=== PATIENT | female | born 1965 | race Caucasian/White ===

== ENCOUNTER 2020-11-26 16:00 | Emergency (ER) | payer OTHER ==
--- NOTE | 2020-11-26 16:08 | ERPHSYRPT ---
- History of Present Illness Time Seen by Provider: 11/26/20 16:08 Source: patient Exam Limitations: no limitations Physician History: This is a 54-year-old thin white female who has a history of GERD and chronic low back pain on gabapentin who presents with right lower back pain with shooting sharp pains down her right buttock and posterior thigh on the right side. Patient did move a dresser a day and a half ago but did not fall off a roof or get hit by car or suffer any other acute trauma to the area. She has no complaints of loss of bowel or bladder control. Method of Injury: lifting, twisted Quality: radiating, sharp Back Pain Location: paraspinous muscles (Lumbar level right side) Back Pain Radiation: buttocks (Right), upper legs (Right posterior) Severity of Pain-Max: mild (To moderate) Severity of Pain-Current: mild (To moderate) Associated Symptoms: lower back pain, muscle spasms (Right paraspinous muscle lumbar level), No urinary incontinence, No loss of bowel control, No numbness in legs/feet Previous symptoms: same symptoms as today Allergies/Adverse Reactions: codeine Allergy (Verified 11/26/20 16:35) Penicillins Allergy (Verified 11/26/20 16:35) Home Medications: Famotidine 20 mg [Pepcid 20 MG] 40 mg PO BID 11/26/20 [History] Gabapentin 100 mg [Neurontin 100 MG] 100 mg PO BID 11/26/20 [History] PANTOPRAZOLE 40 mg Tablet [Protonix 40MG Tablet] 40 mg PO BID 11/26/20 [History] Travel Risk - International Travel Have you traveled outside of the country in past 3 weeks: No - Coronavirus Screening Are you exhibiting any of the following symptoms?: No Close contact with a COVID-19 positive Pt in past 14-21 Days: No - Review of Systems Constitutional: No Symptoms Eyes: No Symptoms Ears, Nose, & Throat: No Symptoms Respiratory: No Symptoms Cardiac: No Symptoms Abdominal/Gastrointestinal: No Symptoms Genitourinary Symptoms: No Symptoms Musculoskeletal: Back Pain, No Injury Skin: No Symptoms Neurological: No Symptoms Psychological: No Symptoms Endocrine: No Symptoms Hematologic/Lymphatic: No Symptoms Immunological/Allergic: No Symptoms All Other Systems: Reviewed and Negative - Past Medical History Pertinent Past Medical History: Yes - Past Surgical History Past Surgical History: Yes - Nursing Vital Signs Nursing Vital Signs: Initial Vital Signs Temperature 97.9 F 11/26/20 16:26 Pulse Rate 114 H 11/26/20 16:26 Respiratory Rate 22 11/26/20 16:26 Blood Pressure 94/61 11/26/20 16:26 O2 Sat by Pulse Oximetry 98 11/26/20 16:26 Pain Scale Pain Intensity [Right Back] 7 Pain Intensity 7 - Physical Exam General Appearance: no apparent distress, alert, anxiety Eye Exam: PERRL/EOMI, eyes nml inspection Ears, Nose, Throat Exam: normal ENT inspection, moist mucous membranes Neck Exam: normal inspection, non-tender, supple, full range of motion Respiratory Exam: normal breath sounds, lungs clear, airway intact, No chest tenderness, No respiratory distress Cardiovascular Exam: tachycardia Gastrointestinal Exam: soft, normal bowel sounds, No tenderness Pelvic Exam: not done Rectal Exam: not done Back Exam: normal inspection, normal range of motion, muscle spasm (Right paraspinous muscle lumbar level), No CVA tenderness, No vertebral tenderness Extremity Exam: normal inspection, normal range of motion, pelvis stable Neurologic Exam: alert, oriented x 3, cooperative, 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 Follow-up with your primary care physician for further management. Prescriptions: Cyclobenzaprine HCl 10 mg [Cyclobenzaprine 10 MG] 10 mg PO TID #10 tablet Prednisone 5 mg [Deltasone 5 mg] 5 mg PO TID #12 tablet
[2020-11-26 17:56] VITALS: BP 92/67; PULSE 97; O2SAT 99
== END 2020-11-26 17:55 | disposition home or self-care (01) ==
LOC: ED 16:00
DX: M54.41 Lumbago with sciatica, right side (principal)
CPT/HCPCS: 99283

== ENCOUNTER 2021-02-02 01:52 | Emergency (ER) | payer OTHER ==
--- NOTE | 2021-02-02 02:43 | ERPHSYRPT ---
- History of Present Illness Time Seen by Provider: 02/02/21 02:38 Source: patient Exam Limitations: no limitations Patient Subjective Stated Complaint: pt states "I tripped over the dog create and hit my head on the back of the recliner." Triage Nursing Assessment: pt ambulated into the er; pt is holding head; pt is axo x4; c/o fall with laceration to forehead; pt states 9/10 pain to head; pt c/o headache and dizziness; pt has laceration to forehead; laceration measures 1.75 cm x 0.5 cm; minimal bleeding present; left pupil 4 mm and nonreactive; pt states that is normal for left eye pupil after surgery to left eye; rt pupil 3 mm and PERRL; strong BUE unix developer; strong BLE pushes; pt denies neck pain; hypertensive Physician History: pt states "I tripped over the dog create and hit my head on the back of the recliner." c/o fall with laceration to forehead; pt states 9/10 pain to head; pt c/o headache and dizziness; pt has laceration to forehead; laceration measures 1.75 cm x 0.5 cm; minimal bleeding present; Timing/Duration: today Associated Symptoms: denies symptoms Allergies/Adverse Reactions: codeine Allergy (Verified 02/02/21 02:10) Penicillins Allergy (Verified 02/02/21 02:10) Home Medications: Famotidine 20 mg [Pepcid 20 MG] 40 mg PO BID 11/26/20 [History] Gabapentin 100 mg [Neurontin 100 MG] 100 mg PO BID 11/26/20 [History] PANTOPRAZOLE 40 mg Tablet [Protonix 40MG Tablet] 40 mg PO BID 11/26/20 [History] Hx Tetanus, Diphtheria Vaccination/Date Given: No Hx Influenza Vaccination/Date Given: No Hx Pneumococcal Vaccination/Date Given: No Travel Risk - International Travel Have you traveled outside of the country in past 3 weeks: No (N) If Yes, where;: N - Coronavirus Screening Are you exhibiting any of the following symptoms?: No Close contact with a COVID-19 positive Pt in past 14-21 Days: No - Vaccine Status Have you recieved a Covid-19 vaccination: No - Review of Systems Constitutional: No Symptoms Eyes: No Symptoms Ears, Nose, & Throat: No Symptoms Respiratory: No Symptoms Cardiac: No Symptoms Abdominal/Gastrointestinal: No Symptoms Genitourinary Symptoms: No Symptoms Musculoskeletal: No Symptoms Skin: No Symptoms Neurological: No Symptoms Psychological: No Symptoms - Past Medical History Pertinent Past Medical History: Yes Psycho-Social History: Anxiety, Depression Other Medical History: being seen by Markel for stomach issues, unknown at this time - Past Surgical History Past Surgical History: Yes Gastrointestinal: Appendectomy Female Surgical History: Section - Social History Smoking Status: Light tobacco smoker How long have you smoked: years Exposure to second hand smoke: No Drug Use: marijuana Patient Lives Alone: No - Female History Hx Now: No - Nursing Vital Signs Nursing Vital Signs: Initial Vital Signs Temperature 98.2 F 02/02/21 01:53 Pulse Rate 89 02/02/21 01:53 Respiratory Rate 16 02/02/21 01:53 Blood Pressure 151/96 02/02/21 01:53 O2 Sat by Pulse Oximetry 99 02/02/21 01:53 Pain Scale Pain Intensity 9 - Physical Exam General Appearance: no apparent distress Eye Exam: PERRL/EOMI Ears, Nose, Throat Exam: normal ENT inspection Neck Exam: normal inspection Respiratory Exam: normal breath sounds Cardiovascular Exam: regular rate/rhythm Back Exam: normal inspection Neurologic Exam: alert, oriented x 3 Skin Exam: normal color, laceration (curvilinear superficial laceration on bridge of nose) SpO2 Interpretation: normal SpO2: 99 O2 Delivery: Room Air Procedures - Laceration/Wound Repair Frontal Time of Procedure: 02:41 Wound Location: forehead Wound Length (cm): 3 Wound's Depth, Shape: superficial Wound Explored: clean Irrigated: Yes Hibiclens Prep: Yes Wound Repaired With: Pete (3 pete) - Course Nursing assessment & vital signs reviewed: Yes - Progress Progress: improved Counseled pt/family regarding: diagnosis, need for follow-up - Departure Departure Disposition: Home Clinical Impression: Laceration of forehead Qualifiers: Encounter type: initial encounter Qualified Code(s): S01.81XA - Laceration without foreign body of other part of head, initial encounter Condition: Stable Critical Care Time: No Referrals: KAILEY COLLADO MD [Primary Care Provider] - Follow up/PCP as directed Instructions: Preventing Falls, Laceration Repair With [place] ([place]) Additional Instructions: Discharge/Care Plan COLE ARRIAGA was seen on 02/02/21 in the Emergency Room. The patient was counseled regarding Diagnosis,Lab results, Imaging studies, need for follow up and when to return to the Emergency Room. Prescriptions given: Discharge Note I have spoken with the patient and/or caregivers. I have explained the patient's condition, diagnosis and treatment plan based on the information available to me at this time. I have answered the patient's and/or caregiver's questions and addressed any concerns. The patient and/or caregivers have as good understanding of the patient's diagnosis, condition and treatment plan as can be expected at this point. The vital signs have been stable. The patient's condition is stable and appropriate for discharge from the emergency department. The patient will pursue further outpatient evaluation with the primary care physician or other designated or consulting physician as outlined in the discharge instructions. The patient and/or caregivers are agreeable to this plan of care and follow-up instructions have been explained in detail. The patient and/or caregivers have received these instruction. The patient/and or caregivers are aware that any significant change in condition or worsening of symptoms should prompt an immediate return to this or the closest emergency department or call 911.
== END 2021-02-02 02:50 | disposition home or self-care (01) ==
LOC: ED 01:52
DX: S01.81XA Laceration without foreign body of other part of head, initial encounter (principal); W01.190A Fall on same level from slipping, tripping and stumbling with subsequent striking against furniture, initial encounter; Z79.899 Other long term (current) drug therapy; Z72.0 Tobacco use; R51.9 Headache, unspecified; R42 Dizziness and giddiness
CPT/HCPCS: 12013; 99283

== ENCOUNTER 2023-10-08 15:31 | Emergency (ER) | payer BC, OTHER ==
--- NOTE | 2023-10-08 15:34 | ERPHSYRPT ---
- History of Present Illness Time Seen by Provider: 10/08/23 15:34 Source: patient Exam Limitations: no limitations Physician History: 57 year old white female who presents with muscular twitches intermittently for over a month. she denies chest pain. she denies sob. she denies any type of trauma. primarily involves bilat upper arms and bilat upper legs. no new medicat ions. no changes to medication dosages. pt has a h/o gerdz and depression. she is taking gabapentin and remeron. she is under a great deal of stress Timing/Duration: other (present for over a month) Severity: mild Character of Deficits: none Deficits: no difficulties Baseline/Normal Cognition: alert oriented x 3 Current Cognition: alert oriented x 3 Baseline Gait: walks w/o assistance Associated Symptoms: denies symptoms Allergies/Adverse Reactions: codeine Allergy (Verified 10/08/23 15:51) Penicillins Allergy (Verified 10/08/23 15:51) Home Medications: Gabapentin [Neurontin 100 MG] 300 mg PO BID 11/26/20 [History] PANTOPRAZOLE 40 mg Tablet [Protonix 40MG Tablet] 40 mg PO BID 11/26/20 [History] Albuterol Sulfate [Albuterol Sulfate Hfa] 2 inh PO UD 10/08/23 [History] Buprenorphine 1 patch TOP WEEKLY 10/08/23 [History] Diclofenac Potassium 50 mg PO BID 10/08/23 [History] Ergocalciferol (Vitamin D2) [Vitamin D2] 1 cap PO WEEKLY 10/08/23 [History] Hydrocodone/Acetaminophen [Hydrocodone-Acetamin 7.5-325] 1 each PO BID 10/08/23 [History] Mirtazapine [Remeron] 15 mg PO DAILY 10/08/23 [History] Nortriptyline HCl [Pamelor] 10 mg PO DAILY 10/08/23 [History] Potassium Chloride 20 meq PO BID 10/08/23 [History] Sofosbuvir/Velpatasvir [Epclusa 400 mg-100 mg Tablet] 1 tab PO DAILY 10/08/23 [History] Venlafaxine HCl ER 75 mg [Effexor XR 75 MG] 75 mg PO DAILY 10/08/23 [History] Zolpidem Tartrate 5 mg [Ambien 5 MG Tablet] 5 mg PO UD 10/08/23 [History] miSOPROStoL 200 mcg PO DAILY 10/08/23 [History] Hx Tetanus, Diphtheria Vaccination/Date Given: No Hx Influenza Vaccination/Date Given: No Hx Pneumococcal Vaccination/Date Given: No Travel Risk - International Travel Have you traveled outside of the country in past 3 weeks: No - Emerging Infectious Disease Are you exhibiting symptoms associated with any current EIDs: No - Review of Systems Constitutional: No Symptoms Eyes: No Symptoms Ears, Nose, & Throat: No Symptoms Respiratory: No Symptoms Cardiac: No Symptoms Abdominal/Gastrointestinal: No Symptoms Genitourinary Symptoms: No Symptoms Musculoskeletal: No Symptoms Neurological: Tics (intermittent over a month. twitches intermittently) Psychological: No Symptoms Endocrine: No Symptoms Hematologic/Lymphatic: No Symptoms Immunological/Allergic: No Symptoms All Other Systems: Reviewed and Negative - Past Medical History Pertinent Past Medical History: Yes Psycho-Social History: Anxiety, Depression Other Medical History: being seen by Markel for stomach issues, unknown at this time - Past Surgical History Past Surgical History: Yes Gastrointestinal: Appendectomy Female Surgical History: Section - Social History Smoking Status: Light tobacco smoker How long have you smoked: years Exposure to second hand smoke: No Drug Use: marijuana Patient Lives Alone: No - Nursing Vital Signs Nursing Vital Signs: Initial Vital Signs Temperature 98.3 F 10/08/23 15:37 Pulse Rate 89 10/08/23 15:37 Blood Pressure 111/78 10/08/23 15:37 O2 Sat by Pulse Oximetry 96 10/08/23 15:37 Pain Scale Pain Intensity 7 - [place] Coma Scale Best Eye Response ([place]): (4) open spontaneously Best Verbal Response ([place]): (5) oriented Best Motor Response ([place]): (6) obeys commands [place] Total: 15 - Physical Exam General Appearance: no apparent distress, alert, anxiety, thin Eye Exam: bilateral eye: normal inspection, PERRL, EOMI Ears, Nose, Throat Exam: normal ENT inspection, moist mucous membranes Neck Exam: normal inspection, non-tender, supple, full range of motion Respiratory: airway intact, No chest tenderness, No respiratory distress Gastrointestinal: No tenderness Pelvic Exam: not done Rectal Exam: not done Back Exam: normal inspection, normal range of motion, No CVA tenderness, No vertebral tenderness Extremity Exam: normal inspection, normal range of motion, pelvis stable Mental Status: alert, oriented x 3, cooperative, depressed affect area field manager Exam: normal hearing, normal speech, PERRL Coordination/Gait: normal finger to nose, normal gait, normal cerebellar function Motor/Sensory: no motor deficit, no sensory deficit, no pronator drift Skin Exam: normal color, warm, dry SpO2 Interpretation: normal O2 Delivery: Room Air - Course Nursing assessment & vital signs reviewed: Yes Ordered Tests: Active Orders 24 hr Category Date Time Status BMP Stat Lab 10/08/23 16:30 Completed D-DIMER QUANTITATIVE Stat Lab 10/08/23 16:30 Completed MAGNESIUM Stat Lab 10/08/23 16:30 Completed Lab/Rad Data: Laboratory Result Diagrams 10/08/23 16:30 Laboratory Results 10/08/23 10/08/23 Range/Units 16:30 16:30 D-Dimer 0.33 (0.0-0.50) mg/L Sodium 138 (135-145) mmol/L Potassium 4.9 (3.5-5.1) mmol/L Chloride 110 H (98-107) mmol/L Carbon Dioxide 25 (22-30) mmol/L Anion Gap 7.5 (5-15) MEQ/L BUN 15 (7-17) mg/dL Creatinine 0.83 (0.52-1.04) mg/dL Estimated GFR 82.7 ML/MIN Glucose 111 H (74-106) mg/dL Calcium 9.0 (8.4-10.2) mg/dL Magnesium 2.0 (1.6-2.3) mg/dL - Progress Progress: unchanged Progress Note: 10/08/23 16:56 my medical decision making and my assignment of this pts medical issue today is based on review of pmh, medication list, drug allergy list, hpi and physical findings on exam. workup includes bmp, mg, ddimer diff dx includes but not limited to stress, electrolyte abnormality, medication side effects 10/08/23 17:01 i interpreted the pts lab results. no acute or emergent medical issue 10/08/23 17:02 pts sx are nonemergent and been present over a month. pt to follow up with pcp noemy 10/11/23 Counseled pt/family regarding: lab results, diagnosis, need for follow-up Medical Desision Making - Independent Historian Additional History obtained from: Family - Diagnostic Testing Diagnostic test were ordered, analyzed, and reviewed by me: Yes - Risk of complications Low Risk: Low risk of morbidity from additional dx testing or treatment - Departure Departure Disposition: Home Clinical Impression: Muscle twitching Condition: Stable Critical Care Time: No Referrals: NAZ IGLESIAS [Primary Care Provider] - Follow up/PCP as directed Additional Instructions: call primary provider 10/11/23, for further management of your nonspecific twitching as an outpatient.
[2023-10-08 15:51] VITALS: PULSE 89; TEMP 98.3
[2023-10-08 16:48] VITALS: BP 100/68; O2SAT 95
[2023-10-08 16:51] LABS: ANION GAP 7.5 MEQ/L (5-15); Creatinine 1 0.83 mg/dL (0.52-1.04); EST GLOMERULAR FILTRATION RATE 82.7 ML/MIN; Potassium 4.9 mmol/L (3.5-5.1)
== END 2023-10-08 17:21 | disposition home or self-care (01) ==
LOC: ED 15:31
DX: R25.3 Fasciculation (principal); Z79.891 Long term (current) use of opiate analgesic; Z79.899 Other long term (current) drug therapy; Z72.0 Tobacco use
CPT/HCPCS: 36415; 80048; 83735; 85379; 99282